=== PATIENT | female | born 1970 | race Caucasian/White ===

== ENCOUNTER 2021-01-04 08:07 | Outpatient (CLI) | payer BC | END 2021-01-04 08:08 | disposition home or self-care (01) | LOC: BICMAMMO 08:07 | PROVIDERS: ATTEND Family Medicine | DX: Z12.31 Encounter for screening mammogram for malignant neoplasm of breast (principal); N64.89 Other specified disorders of breast; Z98.890 Other specified postprocedural states | CPT/HCPCS: 77063; 77067 ==

== ENCOUNTER 2021-02-14 08:35 | Outpatient (CLI) | payer BC | END 2021-02-14 08:36 | disposition home or self-care (01) | LOC: BICMAMMO 08:35 | PROVIDERS: ATTEND Family Medicine | DX: R92.1 Mammographic calcification found on diagnostic imaging of breast (principal) | CPT/HCPCS: G0279 ==

== ENCOUNTER 2021-04-03 12:56 | Outpatient (CLI) | payer BC ==
[2021-04-03 14:19] LABS: #Basophils 0.1 10x3/uL (0.0-0.2); #Eosinphils 0.3 10x3/uL (0.0-0.5); #Monocytes 0.4 10x3/uL (0.0-1.1); #Neutrophils 3.5 10x3/uL (1.5-8.4); %Eosinophils 4.3 % (0.0-6.0); %Lymphocytes 27.9 % (18.0-47.0); %Neutrophils 59.5 % (40.0-75.0); Hemoglobin 13.4 g/dL (12.0-15.5); Mean Corpuscular HGB CONC 32.4 g/dL (32.0-36.0); Mean Corpuscular Hemoglobin 30.5 pg (27.0-33.0); Mean Corpuscular Volume 94.1 fl (81.6-98.3); Mean Platelet Volume 8.9 fl (7.4-10.4); Platelet Count 361 10x3/uL (150-450); RBC Distribution Width 13.2 % (11.5-14.5); White Blood Cell (WBC) Count 5.9 10x3/uL (3.5-10.5)
[2021-04-03 14:27] LABS: Anion Gap 12 mmol/L (10-20); BUN (Urea Nitrogen) 13 mg/dL (9.8-20.1); Calc. Creatinine Clearance 0 mL/min (70-130); Calcium 9.3 mg/dL (7.8-10.44); Carbon Dioxide 28 mmol/L (22-29); Chloride 103 mmol/L (98-107); Glucose 98 mg/dL (70-105); Potassium 4.5 mmol/L (3.5-5.1); Sodium 138 mmol/L (136-145)
[2021-04-04 12:26] LABS: SARS-CoV-2 PCR by NAA DETECTED (NotDetected)
== END 2021-04-03 12:57 | disposition home or self-care (01) ==
LOC: LABBT 12:56
PROVIDERS: ATTEND Surgery
DX: U07.1 COVID-19 (principal); Z01.812 Encounter for preprocedural laboratory examination; D05.11 Intraductal carcinoma in situ of right breast
CPT/HCPCS: 80048; 85025; U0003; U0005

== ENCOUNTER 2021-05-04 06:15 | Day surgery (SDC) | payer BC ==
[2021-04-26 13:16] VITALS: BMI 32.6
[2021-05-04] MEDS ORDERED: Ketorolac Tromethamine 30 MG/ML VIAL ONE (06:28)
[2021-05-04] MEDS ORDERED: Acetaminophen 500 MG TAB ONE (06:28)
[2021-05-04 07:14] LABS: #Basophils 0.1 thou/uL (0.0-0.2); #Eosinphils 0.2 thou/uL (0.0-0.7); #Lymphocytes 1.6 thou/uL (1.20-3.40); #Monocytes 0.4 thou/uL (0.11-0.59); #Neutrophils 2.5 thou/uL (1.40-6.50); %Basophils 1.3 % (0.0-1.0); %Eosinophils 3.6 % (0.0-10.0); %Lymphocytes 33.5 % (21.0-51.0); %Monocytes 8.7 % (0.0-10.0); %Neutrophils 52.9 % (42.0-75.0); Hemoglobin 13.2 g/dL (12.0-16.0); Mean Corpuscular HGB CONC 33.3 g/dL (32.0-36.0); Mean Corpuscular Hemoglobin 31.6 pg (27.0-31.0); Mean Corpuscular Volume 94.9 fL (78.0-98.0); Platelet Count 322 thou/uL (130-400); RBC Distribution Width 11.9 % (11.5-14.5); Red Blood Cell (RBC) Count 4.18 mill/uL (4.20-5.40); White Blood Cell (WBC) Count 4.8 thou/uL (4.8-10.8)
[2021-05-04 07:20] LABS: Anion Gap 13 mmol/L (10-20); BUN (Urea Nitrogen) 14 mg/dL (9.8-20.1); Calc. Creatinine Clearance 133 mL/min (70-130); Calcium 9.2 mg/dL (7.8-10.44); Carbon Dioxide 25 mmol/L (22-29); Chloride 105 mmol/L (98-107); Glucose 88 mg/dL (70-105); Potassium 4.2 mmol/L (3.5-5.1); Sodium 139 mmol/L (136-145)
[2021-05-04] MEDS ORDERED: Midazolam HCl 2 mg/2 ml Vial ONE (07:31)
[2021-05-04] MEDS ORDERED: Fentanyl 100 MCG/2 ML VIAL ONE ×2 (07:32)
[2021-05-04] MEDS ORDERED: HYDROmorphone 0.5 MG/0.5 ML SYRINGE ONE (07:33)
[2021-05-04] MEDS ORDERED: Famotidine/PF 20 mg/2ml Vial ONE (07:43)
[2021-05-04] MEDS ORDERED: Xylocaine 1% w/ Epi 1:100K 10 ML VIAL ONE (07:48)
[2021-05-04] MEDS ORDERED: Bupivacaine 0.25% HCL 30 ML VIAL ONE (07:48)
[2021-05-04] MEDS ORDERED: Levofloxacin 500 mg/D5W 100 ml Premix Bag ONE (08:00)
[2021-05-04] MEDS ORDERED: PROPOFOL 200 MG/20 ML VIAL ONE (08:09)
[2021-05-04] MEDS ORDERED: Lidocaine 1% PF 5 ML VIAL ONE (08:09)
[2021-05-04] MEDS ORDERED: Ondansetron PF 4 MG/2 ML Vial ONE (08:09)
[2021-05-04] MEDS ORDERED: Dexamethasone 20 MG/5 ML VIAL ONE (08:09)
== END 2021-05-04 10:26 | disposition home or self-care (01) ==
LOC: SDC 06:15
PROVIDERS: ATTEND Surgery
PROC: 0HBT0ZZ Excision of Right Breast, Open Approach (ICD-10-PCS; principal; 2021-05-04)
DX: D05.11 Intraductal carcinoma in situ of right breast (principal); N64.1 Fat necrosis of breast; N60.81 Other benign mammary dysplasias of right breast; N60.41 Mammary duct ectasia of right breast; N60.21 Fibroadenosis of right breast; Z86.16 Personal history of COVID-19; Z87.891 Personal history of nicotine dependence; Z79.899 Other long term (current) drug therapy; Z88.0 Allergy status to penicillin
CPT/HCPCS: 19281; 36415; 76098; 80048; 85025; 88307; 88341; 88342; C1776; J1100; J1170; J1885; J1956; J2250; J2405; J2704; J3010; S0020; S0028

== ENCOUNTER 2021-05-16 09:27 | Day surgery (SDC) | payer BC ==
[2021-05-14 09:44] VITALS: BMI 32.6
[2021-05-16] MEDS ORDERED: Ketorolac Tromethamine 30 MG/ML VIAL ONE ×2 (09:46→11:51)
[2021-05-16] MEDS ORDERED: Acetaminophen 500 MG TAB ONE (09:46)
[2021-05-16] MEDS ORDERED: EPINEPHrine 1 MG/ML AMP ONE (11:25)
[2021-05-16] MEDS ORDERED: Bupivacaine 0.25% HCL 30 ML VIAL ONE ×2 (11:25→13:05)
[2021-05-16] MEDS ORDERED: Famotidine/PF 20 mg/2ml Vial ONE (11:25)
[2021-05-16] MEDS ORDERED: Levofloxacin 500 mg/D5W 100 ml Premix Bag ONE (11:42)
[2021-05-16] MEDS ORDERED: Ondansetron PF 4 MG/2 ML Vial ONE (11:51)
[2021-05-16] MEDS ORDERED: Metoclopramide HCl 10 MG/2 ML VIAL ONE (11:51)
[2021-05-16] MEDS ORDERED: Lidocaine 1% PF 5 ML VIAL ONE (11:51)
[2021-05-16] MEDS ORDERED: PROPOFOL 200 MG/20 ML VIAL ONE (11:51)
[2021-05-16] MEDS ORDERED: PHENYLEPHRINE-NS 100 MCG/ML 10 ML SYRINGE ONE (11:51)
[2021-05-16] MEDS ORDERED: Fentanyl 250 MCG/5 ML VIAL ONE (12:01)
== END 2021-05-16 15:05 | disposition home or self-care (01) ==
LOC: SDC 09:27
PROVIDERS: ATTEND Surgery
PROC: 0HBT0ZZ Excision of Right Breast, Open Approach (ICD-10-PCS; principal; 2021-05-16)
DX: D05.11 Intraductal carcinoma in situ of right breast (principal); Z87.891 Personal history of nicotine dependence; Z79.899 Other long term (current) drug therapy; Z88.0 Allergy status to penicillin
CPT/HCPCS: 88307; 88341; 88342; C1776; J0171; J1885; J1956; J2405; J2704; J2765; J3010; S0020; S0028

== ENCOUNTER 2022-01-07 12:54 | Outpatient (CLI) | payer BC | END 2022-01-07 12:55 | disposition home or self-care (01) | LOC: BICMAMMO 12:54 | PROVIDERS: ATTEND Surgery | DX: Z08 Encounter for follow-up examination after completed treatment for malignant neoplasm (principal); Z85.3 Personal history of malignant neoplasm of breast | CPT/HCPCS: 77066; G0279 ==

== ENCOUNTER 2023-01-14 08:56 | Outpatient (CLI) | payer BC | END 2023-01-14 08:57 | disposition home or self-care (01) | LOC: BICMAMMO 08:56 | PROVIDERS: ATTEND Specialist | DX: D05.11 Intraductal carcinoma in situ of right breast (principal) | CPT/HCPCS: 77066; G0279 ==